=== PATIENT | female | born 2000 | race Caucasian/White ===

== ENCOUNTER → 2019-12-08 | Outpatient (CLI) | payer BC ==
--- NOTE | 2019-12-08 15:30 | US ---
EXAMINATION TYPE: US pelvis complete transvag DATE OF EXAM: 12/08/2019 COMPARISON: NONE CLINICAL HISTORY: R10.2 PELVIC AND PERINEAL PAIN. Pelvic pain TECHNIQUE: Transvaginal (TV) and Transabdominal (TA) . Transabdominal sonographic images of the pel vis were acquired. Transvaginal sonographic images were medically necessary to better assess the fol lowing anatomy: ovaries Date of LMP: 11/18/19 EXAM MEASUREMENTS: Uterus: 7.4 x 4.3 x 5.8 cm Endometrial Stripe: 0.4 cm Right Ovary: 3.1 x 1.6 x 1.9 cm Left Ovary: 2.9 x 1.5 x 1.6 cm Large amount of overlying bowel content 1. Uterus: Anteverted 2. Endometrium: appears wnl 3. Right Ovary: follicles noted 4. Left Ovary: follicles noted 5. Bilateral Adnexa: large amount of overlying bowel 6. Posterior cul-de-sac: appears wnl IMPRESSION: 1. Exam limited by bowel gas demonstrates no definite acute process.
== END | disposition home or self-care (01) ==
LOC: RADUSWWP 14:37
PROVIDERS: ATTEND Internal Medicine
DX: R10.2 Pelvic and perineal pain (principal)
CPT/HCPCS: 76830; 76856

== ENCOUNTER → 2021-05-31 | Outpatient (CLI) | payer BC ==
[2021-05-31 23:43] LABS: ALT 33 U/L (8-44); AST 26 U/L (13-35); African American GFR (CKD) 113.4 (60.0-200.0); Albumin 4.7 g/dL (3.8-4.9); Alkaline Phosphatase 85 U/L (41-126); BUN/Creat Ratio 14.34 Ratio (12.00-20.00); Blood Urea Nitrogen 12.2 mg/dL (9.0-27.0); C Reactive Protein <0.30 mg/dL (0.00-0.80); Calcium 9.6 mg/dL (8.7-10.3); Carbon Dioxide 22.7 mmol/L (20.0-27.5); Chloride 105 mmol/L (96-109); Globulin 2.8 g/dL (1.6-3.3); Glucose 87 mg/dL (70-110); Non-African American GFR(CKD) 97.8 (60.0-200.0); Potassium 4.1 mmol/L (3.5-5.5); Rheumatoid Factor, Qnt <10 IU/mL (0-15); Sodium 140 mmol/L (135-145); Total Protein 7.5 g/dL (6.2-8.2); Uric Acid 3.6 mg/dL (2.9-7.7)
[2021-06-01 00:57] LABS: Basophils # (A) 0.04 X 10*3/uL (0.00-0.10); Basophils % (A) 0.4 %; Eosinophils # (A) 0.13 X 10*3/uL (0.04-0.35); Eosinophils % (A) 1.4 %; HCT 41.7 % (37.2-46.3); HGB 13.3 g/dL (12.0-15.0); Immature Grans, Automated 0.3 %; MCH 27.9 pg (27.0-32.0); MCHC 31.9 g/dL (32.0-37.0); MCV 87.4 fL (80.0-97.0); Mean Platelet Volume 9.6 fL (9.5-12.2); Monocytes # (A) 0.75 X 10*3/uL (0.20-1.00); Monocytes % (A) 8.1 %; NRBC Per 100 WBC 0 /100 WBCS (0.0-0.0); Neutrophils # (A) 5.74 X 10*3/uL (1.80-7.70); Neutrophils % (A) 61.8 %; Platelet Count 292 X 10*3/uL (140-440); RBC 4.77 X 10*6/uL (4.10-5.20); RDW 12.7 % (11.5-14.5); WBC 9.29 X 10*3/uL (4.50-10.00)
[2021-06-01 01:28] LABS: Erythrocyte Sedimentation Rate 3 mm/Hr (0-20)
== END | disposition home or self-care (01) ==
LOC: LABWHC1 16:00
PROVIDERS: ATTEND Family Medicine
DX: M25.50 Pain in unspecified joint (principal); Q79.69 Other Ehlers-Danlos syndromes
CPT/HCPCS: 36415; 80053; 84550; 85025; 85652; 86038; 86039; 86140; 86431

== ENCOUNTER → 2023-12-10 | Outpatient (CLI) | payer BC ==
--- NOTE | 2023-12-10 08:54 | US ---
EXAMINATION TYPE: US abdomen complete DATE OF EXAM: 12/10/2023 COMPARISON: NONE CLINICAL INDICATION: Female, 23 years old with history of R74.8 ABNORMAL LEVELS OF OTHER SERUM ENZYME S; TECHNIQUE: Multiple sonographic images of the abdomen are obtained. FINDINGS: EXAM MEASUREMENTS: Liver Length: 11.3 cm Gallbladder Wall: 0.2 cm CBD: 0.3 cm Spleen: 10.5 cm Right Kidney: 10.2 x 5.3 x 4.2 cm Left Kidney: 10.9 x 6.6 x 5.6 cm [employer] NOTES: Pancreas: wnl Liver: wnl Gallbladder: wnl Evidence for sonographic Redmond's sign: No CBD: wnl Spleen: wnl; accessory spleen Right Kidney: wnl Left Kidney: wnl Upper IVC: wnl Abd Aorta: wnl The liver is homogenous. The intrahepatic portion of the IVC and proximal abdominal aorta are within normal limits. There is no evidence of cholelithiasis. Common bile duct is unremarkable. The visu alized portions of the pancreas are homogenous. The spleen is unremarkable. Kidneys are symmetric a nd free of hydronephrosis. No renal lesions are seen. IMPRESSION: Accessory splenule. Otherwise unremarkable study. [facility], , 12/10/2023 8:52 AM
== END | disposition home or self-care (01) ==
LOC: RADUSWWP 08:12
PROVIDERS: ATTEND Family Medicine
DX: R74.8 Abnormal levels of other serum enzymes (principal)
CPT/HCPCS: 76700

== ENCOUNTER → 2024-02-10 | Outpatient (CLI) | payer BC ==
--- NOTE | 2024-02-11 13:48 | US ---
EXAMINATION TYPE: US axilla LT DATE OF EXAM: 02/10/2024 COMPARISON: NONE CLINICAL INDICATION: Female, 23 years old with history of R22.2 LOCALIZED SWELLING, MASS AND LUMP, TR UNK; Patient has felt a lump in the left axilla x 1 week. No pain. TECHNIQUE: Scanned left axilla. FINDINGS: Complex area seen superficially in left axilla = 1.3 x 0.5 x 0.2 cm. IMPRESSION: Small probable sebaceous cyst at the site of clinical concern. Correlate clinically. [facility], , 02/11/2024 1:46 PM
== END | disposition home or self-care (01) ==
LOC: RADUSWWP 13:58
PROVIDERS: ATTEND Family Medicine
DX: R22.2 Localized swelling, mass and lump, trunk (principal)